=== PATIENT | female | born 1995 | race Hispanic/Latino ===

== ENCOUNTER 2017-08-29 10:21 | Emergency (ER) | payer BC ==
[2017-08-29 10:36] VITALS: BP 127/88; PULSE 83; RESP 20; TEMP 98.4; O2SAT 97
--- NOTE | 2017-08-29 11:00 | C.PDOC ---
History Of Present Illness 22 y/o female presents to the ER complaining of diffuse itchy rash to the arms and abdomen. Patient states that she initially had the rash 3 months ago. Patient reports that she was seen by a PMD and treated for scabies. The symptoms improved 1.5 months ago however the symptoms returned during the past several days. 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 Time Seen by Provider: 08/29/17 10:38 Chief Complaint (Nursing): Abnormal Skin Integrity History Per: Patient History/Exam Limitations: no limitations Onset/Duration Of Symptoms: Days Current Symptoms Are (Timing): Still Present Severity: Moderate Past Medical History Reviewed: Historical Data, Nursing Documentation, Vital Signs Vital Signs: Last Vital Signs Temp 98.4 F 08/29/17 10:32 Pulse 83 08/29/17 10:32 Resp 20 08/29/17 10:32 BP 127/88 08/29/17 10:32 Pulse Ox 97 08/29/17 14:01 - Medical History PMH: No Chronic Diseases Other Surgeries: Hx of surgeries Family History: States: No Known Family Hx - Social History Hx Alcohol Use: Yes Hx Substance Use: No - Immunization History Hx Tetanus Toxoid Vaccination: Yes Hx Influenza Vaccination: No Hx Pneumococcal Vaccination: No Review Of Systems Except As Marked, All Systems Reviewed And Found Negative. Respiratory: Negative for: Shortness of Breath, Wheezing Skin: Positive for: Rash (rash to arms and abdomen) Physical Exam - Physical Exam Appears: Non-toxic, No Acute Distress, Other (comfortable, overweight) Skin: Normal Color, Warm, Dry, Rash (scattered maculopapular rash to abdomen, some regions of rash are in linear orientation), Other ((-) rash to bilateral hands and interdigital webs) Head: Atraumatic, Normacephalic Eye(s): bilateral: Normal Inspection Nose: Normal Oral Mucosa: Moist Tongue: Normal Appearing, No Swelling Lips: Normal Appearing, No Swelling Neck: Supple Chest: Symmetrical Cardiovascular: Rhythm Regular Respiratory: Normal Breath Sounds, No Rales, No Rhonchi, No Wheezing Neurological/Psych: Oriented x3, Normal Speech ED Course And Treatment O2 Sat by Pulse Oximetry: 97 (RA) Pulse Ox Interpretation: Normal Progress Note: Patient treated with Claritin PO. Patient discharged with prescriptions for Stromectol, Claritin, and Permethrin. Patient has been instructed to follow up with PMD in 1-2 days. Disposition Counseled Patient/Family Regarding: Studies Performed, Diagnosis, Need For Followup, Rx Given - Disposition Referrals: [facility] [Outside] Disposition: HOME/ ROUTINE Disposition Time: 11:05 Condition: STABLE Additional Instructions: FOLLOW UP WITH YOUR DOCTOR/CLINIC IN 1-2 DAYS USE MEDICATIONS DIRECTED RETURN TO ER IF SYMPTOMS WORSEN Prescriptions: Ivermectin [Stromectol] 27 mg PO ONCE #9 tab Loratadine [Claritin] 10 mg PO DAILY PRN #15 tab PRN Reason: ITCHING, ALLERGIES Permethrin 5% [Permethrin] 5 unit TP ONCE #3 tube Instructions: Scabies (DC) Forms: [employer] ([place]) Print Language: FILIPINO - Clinical Impression Clinical Impression: Skin irritation, Scabies - Scribe Statement The provider has reviewed the documentation as recorded by the Wilber Starr Provider Attestation: All medical record entries made by the Wilber were at my direction and personally dictated by me. I have reviewed the chart and agree that the record accurately reflects my personal performance of the history, physical exam, medical decision making, and the department course for this patient. I have also personally directed, reviewed, and agree with the discharge instructions and disposition.
== END 2017-08-29 11:34 | disposition home or self-care (01) ==
LOC: C.ER 10:21
DX: B86 Scabies (principal); L98.8 Other specified disorders of the skin and subcutaneous tissue

== ENCOUNTER 2018-04-09 06:09 | Emergency (ER) | payer BC ==
--- NOTE | 2018-04-09 07:18 | C.PDOC ---
History Of Present Illness 22 year old female presents to the ED c/o mid-back pain and mild dizziness for 2 days. Patient states that she went snow-boarding and landed on her back and hit her head. Denies LOC, change in vision, cp, sob, abd pain, vomiting. Patient admits to mild nausea. Took motrin 800mg with some relief this early am. Chief Complaint (Nursing): Medical Clearance History Per: Patient History/Exam Limitations: no limitations Onset/Duration Of Symptoms: Days Current Symptoms Are (Timing): Still Present Severity: Mild Past Medical History Reviewed: Historical Data, Nursing Documentation, Vital Signs Vital Signs: Last Vital Signs Temp 98.5 F 04/09/18 06:19 Pulse 90 04/09/18 06:19 Resp 14 04/09/18 06:19 BP 138/86 04/09/18 06:19 Pulse Ox 99 04/09/18 06:19 ADRI Report Viewed: No Surgical History: Cholecystectomy Family History: States: No Known Family Hx - Social History Hx Alcohol Use: Yes Hx Substance Use: No - Immunization History Hx Tetanus Toxoid Vaccination: Yes Hx Influenza Vaccination: No Hx Pneumococcal Vaccination: No Review Of Systems Except As Marked, All Systems Reviewed And Found Negative. Cardiovascular: Negative for: Chest Pain Respiratory: Negative for: Shortness of Breath Gastrointestinal: Positive for: Nausea. Negative for: Vomiting Physical Exam - Physical Exam Appears: Well, Non-toxic Skin: Normal Color, Warm, Dry Head: Atraumatic, Normacephalic, No Tenderness Eye(s): bilateral: Normal Inspection, PERRL, EOMI Ear(s): Bilateral: Normal Nose: Normal Oral Mucosa: Moist Neck: Normal, Normal ROM Lymphatic: Normal Exam Chest: Symmetrical, No Deformity, No Tenderness Cardiovascular: Rhythm Regular Respiratory: Normal Breath Sounds Gastrointestinal/Abdominal: Normal Exam, Bowel Sounds, Soft, No Tenderness Rectal: Deferred Back: Normal Inspection, No CVA Tenderness, Muscle Spasm (thorasic/lumbar area) Extremity: Normal ROM Extremity: Bilateral: Atraumatic Neurological/Psych: Oriented x3, Normal Speech ED Course And Treatment O2 Sat by Pulse Oximetry: 99 (RA) Pulse Ox Interpretation: Normal Medical Decision Making Medical Decision Making: Plan: -CT Head w/o contrast -Zofran -x-ray Dorsal Thoracic Spine Progress/Update: Patient stable for discharge home. Prescribed Zofran. Advised to follow up with PMD within 1-2 days. Advised to return to the ED if symptoms persist. Disposition - Disposition Referrals: [facility] [Outside] [facility] [Outside] Disposition: HOME/ ROUTINE Disposition Time: 09:00 Condition: IMPROVED Additional Instructions: SAW MATIAS, thank you for letting us take care of you today. The emergency medical care you received today was directed at your acute symptoms. If you were prescribed any medication, please fill it and take as directed. It may take several days for your symptoms to resolve. Return to the Emergency Department if your symptoms worsen, do not improve, or if you have any other problems. Please contact your doctor or call one of the physicians/clinics you have been referred to that are listed on the Patient Visit Information form that is included in your discharge packet. Bring any paperwork you were given at discharge with you along with any medications you are taking to your follow up visit. Our treatment cannot replace ongoing medical care by a primary care provider outside of the emergency department. Thank you for allowing the [facility] team to be part of your care today. Follow up with our clinic this upcoming week for re-evaluation and further management. Prescriptions: Ondansetron ODT [Zofran ODT] 4 mg PO Q8 PRN #15 odt PRN Reason: Nausea/Vomiting Instructions: Minor Head Injury (DC) Forms: [employer] ([place]) - Clinical Impression Clinical Impression: Minor head injury
--- NOTE | 2018-04-09 08:55 | CT ---
Date of service: 04/09/2018 PROCEDURE: CT HEAD WITHOUT CONTRAST. HISTORY: s/p fall r/o ICH and fx COMPARISON: None available. TECHNIQUE: Axial computed tomography images were obtained through the head/brain without intravenous contrast. Radiation dose: Total exam DLP = 1251.18 mGy-cm. This CT exam was performed using one or more of the following dose reduction techniques: Automated exposure control, adjustment of the mA and/or kV according to patient size, and/or use of iterative reconstruction technique. FINDINGS: HEMORRHAGE: No intracranial hemorrhage. BRAIN: Gonzalez-white matter differentiation is preserved. There is no mass, mass effect or abnormal extra-axial fluid collection. There is no territorial infarction. The midline sagittal structures are normal. VENTRICLES: The ventricles are normal in size, shape and configuration. CALVARIUM: There is no calvarial fracture or extracranial soft tissue swelling. PARANASAL SINUSES: Predominantly clear. MASTOID AIR CELLS: Predominantly clear. OTHER FINDINGS: None. IMPRESSION: No acute intracranial abnormality.
[2018-04-09 09:35] VITALS: BP 117/81; PULSE 78; RESP 16; TEMP 98.4; O2SAT 99
--- NOTE | 2018-04-09 11:22 | RAD ---
Date of service: 04/09/2018 HISTORY: s/p fall r/o fx COMPARISON: No prior. FINDINGS: BONES: Alignment maintained. Normal thoracic kyphosis. No fracture. DISC SPACES: Mild degenerative disc disease in the mid and lower thoracic spine. SOFT TISSUES: Normal. OTHER FINDINGS: None. IMPRESSION: No acute fracture.
== END 2018-04-09 09:33 | disposition home or self-care (01) ==
LOC: C.ER 06:09
DX: S09.90XA Unspecified injury of head, initial encounter (principal); W18.39XA Other fall on same level, initial encounter; Y93.23 Activity, snow (alpine) (downhill) skiing, snowboarding, sledding, tobogganing and snow tubing; Y92.838 Other recreation area as the place of occurrence of the external cause